=== PATIENT | female | born 1985 | race Caucasian/White ===

== ENCOUNTER 2022-07-05 19:06 | Emergency (ER) | payer OTHER ==
[~2022-07-05] VITALS: Ht 175.3 cm; Wt 86.2 kg
[~2022-07-05 19:06] MED LIST: N; PEPCID40 MG PO; PROTECT PLUS L237 ML PO; ZOFRAN4 MG PO
== END 2022-07-06 | disposition home or self-care (01) ==
LOC: ER 19:06
DX: G51.0 Bell's palsy (principal)

== ENCOUNTER 2023-03-31 14:12 | Emergency (ER) | payer OTHER ==
[~2023-03-31] VITALS: Ht 175.3 cm; Wt 89.8 kg
== END 2023-03-31 20:25 | disposition home or self-care (01) ==
LOC: ER 14:12
DX: R51.9 Headache, unspecified (principal); B34.9 Viral infection, unspecified; Z20.822 Contact with and (suspected) exposure to COVID-19

== ENCOUNTER 2024-12-04 11:27 | Emergency (ER) | payer OTHER ==
[~2024-12-04] VITALS: Ht 175.3 cm; Wt 81.6 kg
[2024-12-04] MEDS ORDERED: DEXTROSE 5 % AND 0.9 % NACL 500 ML IV STA (14:11)
[2024-12-04] MEDS ORDERED: ACETAMINOPHEN 500 MG GEL..CAP PO ONE (15:15)
[2024-12-04 15:22] LABS: HEMOGLOBIN 14.6 g/dL (12.0-15.00); MEAN CELL VOLUME 88.8 fL (80.00-100.00); MEAN CORPUSCULAR HEMOGLOBIN 30.9 pg (27.00-32.0); MEAN CORPUSCULAR HGB CONC 34.8 g/dl (32.0-36.0); PLATELET COUNT 182 K/uL (150-450); RED BLOOD COUNT 4.73 M/uL (4.00-6.00); RED CELL DISTRIBUTION WIDTH 13.6 % (11.5-14.5)
[2024-12-04 15:53] LABS: ALBUMIN 4.4 gm/dL (3.4-5.0); BILIRUBIN TOTAL 0.48 mg/dL (0.3-1.2); CALCIUM 9.1 mg/dL (8.5-10.1); CREATININE SERUM 0.72 mg/dL (0.55-1.02); GFR 91.14; GLOBULINA 4.1 G/DL (2.4-3.5); POTASSIUM 4.62 mEq/L (3.5-5.1); TOTAL PROTEIN 8.5 gm/dL (6.4-8.2)
[2024-12-04] MEDS ORDERED: KETOROLAC TROMETHAMINE 60 MG VIAL IM STA (16:32)
[2024-12-04] MEDS ORDERED: OSEL75CA PO (17:42)
[2024-12-04] MEDS ORDERED: TYLENOL ARTHRI650 MG PO (17:43)
== END 2024-12-04 18:39 | disposition home or self-care (01) ==
LOC: ER 11:29
DX: R53.81 Other malaise (principal); J10.1 Influenza due to other identified influenza virus with other respiratory manifestations; Z20.822 Contact with and (suspected) exposure to COVID-19